=== PATIENT | male | born 1945 | race Caucasian/White ===

== ENCOUNTER → 2021-07-06 | Outpatient (CLI) | payer MEDICARE ==
[2021-07-06 14:41] LABS: FREE T4 0.91 NG/DL (0.76-1.46); RHEUMATOID FACTOR QUANT < 10.0 IU/ML (<15.0); TOTAL PROTEIN 7.9 GM/DL (6.4-8.2)
[2021-07-06 14:43] LABS: VITAMIN B12 LEVEL 1217 PG/ML
[2021-07-06 14:44] LABS: FOLATE 17.4 NG/ML
[2021-07-06 14:46] LABS: HEMOGLOBIN A1c 5.4 %
[2021-07-08 12:04] LABS: ALBUMIN 4.52 GM/DL (3.29-5.55); ALBUMIN % 57.2 % (55.8-66.1); ALPHA-1-GLOBULIN % 3.5 % (2.9-4.9); ALPHA-1-GLOBULINS 0.28 GM/DL (0.17-0.41); ALPHA-2-GLOBULINS 0.95 GM/DL (0.42-0.99); BETA-2-GLOBULINS 0.42 GM/DL (0.19-0.55); BETA-2-GLOBULINS % 5.3 % (3.2-6.5)
[2021-07-08 12:05] LABS: GAMMA GLOBULINS 1.34 GM/DL (0.65-1.58)
== END ==
LOC: M PLALAB 10:32
PROVIDERS: ATTEND Psychiatry & Neurology Neurology
DX: E11.42 Type 2 diabetes mellitus with diabetic polyneuropathy (principal); E06.9 Thyroiditis, unspecified; M35.00 Sjogren syndrome, unspecified